=== PATIENT | male | born 1980 | race Caucasian/White ===

== ENCOUNTER → 2016-10-11 | Outpatient (CLI) | payer OTHER ==
--- NOTE | 2016-10-11 13:28 | KCIC ---
MRI left knee without contrast dated 10/11/2016. No comparison available. CLINICAL INDICATION: Pain and swelling after injury. TECHNIQUE: Routine multiplanar multisequence MR imaging of left knee performed. No contrast administered. FINDINGS: Bone marrow signal is homogeneous. No marrow edema. Mild tricompartmental hypertrophic change with mild thinning and surface irregularity of the articular cartilage throughout. No full-thickness cartilage defect. Small joint effusion. Small popliteal cyst. No intra-articular loose body. Anterior cruciate and posterior cruciate ligaments are intact. Medial and lateral collateral complexes are intact. Iliotibial band, popliteus tendon and pelvis answering complex within normal limits. There is mild increased signal along the superficial and deep margins of the MCL complex proximally. Quadriceps and patellar tendon are intact. No abnormality of the medial and lateral retinaculum. Horizontal oblique tear posterior horn/body of medial meniscus. Tear extends to the tibial articular surface and there is a horizontal cleavage component extending to the medial meniscal body. Anterior horn is intact. Lateral meniscus is normal in morphology and signal. IMPRESSION: 1. Complex tear posterior horn and body of medial meniscus. 2. Mild tricompartmental degenerative arthrosis and chondromalacia. 3. Small joint effusion and small popliteal cyst 4. Edema along the superficial and deep margins of the medial collateral ligament complex, reactive edema versus low-grade strain. Electronically signed by: Allan Dutta MD (10/11/2016 1:25 PM)
== END | disposition home or self-care (01) ==
LOC: KCIC MRI 12:19
PROVIDERS: ATTEND Orthopaedic Surgery
DX: M25.562 Pain in left knee (principal); M25.462 Effusion, left knee
CPT/HCPCS: 73721

== ENCOUNTER → 2018-09-17 | Outpatient (CLI) | payer OTHER ==
--- NOTE | 2018-09-17 12:19 | KCIC ---
EXAM: Right shoulder, 3 views; right clavicle, 2 views. HISTORY: Pain. COMPARISON: None. FINDINGS: 3 views of the right shoulder and 2 views of the right clavicle are obtained. There is no fracture, dislocation or subluxation. IMPRESSION: No acute osseous finding. Electronically signed by: Charla Kaur MD (09/17/2018 12:17 PM) [id number]
== END | disposition home or self-care (01) ==
LOC: KCIC 09:24
PROVIDERS: ATTEND Physician Assistant Medical
DX: S43.101A Unspecified dislocation of right acromioclavicular joint, initial encounter (principal); X58.XXXA Exposure to other specified factors, initial encounter; Y93.89 Activity, other specified; Y92.89 Other specified places as the place of occurrence of the external cause; Y99.8 Other external cause status
CPT/HCPCS: 73000; 73030

== ENCOUNTER → 2018-12-03 | Outpatient (CLI) | payer OTHER ==
--- NOTE | 2018-12-03 15:05 | KCIC ---
Examination: MRI chest without contrast HISTORY: History of pain, tenderness, deformity of the right sternoclavicular joint. COMPARISON: None available Technique: Multiplanar, multisequence MR imaging of the bilateral sternoclavicular joints are performed FINDINGS: There is mild increased T2 signal identified in the medial clavicle and the sternum at the right sternoclavicular joint region with minimal amount of fluid in the sternal clavicular joint. No obvious cortical disruption is evident. No evidence of dislocation identified. Examination is somewhat limited due to motion artifact The visualized apical lungs appear clear. IMPRESSION: 1. Increased T2 signal/edema identified in the medial clavicle and sternum in the right sternoclavicular joint. Differential includes infectious or inflammatory arthritis/synovitis or posttraumatic.. Correlate clinically. Electronically signed by: Albaro Arteaga MD (12/03/2018 3:02 PM) [id number]
== END | disposition home or self-care (01) ==
LOC: KCIC MRI 13:51
PROVIDERS: ATTEND Physician Assistant Medical
DX: S43.201A Unspecified subluxation of right sternoclavicular joint, initial encounter (principal); S43.101A Unspecified dislocation of right acromioclavicular joint, initial encounter; X58.XXXA Exposure to other specified factors, initial encounter; Y93.89 Activity, other specified; Y92.89 Other specified places as the place of occurrence of the external cause; Y99.8 Other external cause status
CPT/HCPCS: 71550